=== PATIENT | female | born 2000 | race Two or more races ===

== ENCOUNTER 2022-05-29 19:09 | Emergency (ER) | payer OTHER ==
[2022-05-29 19:45] VITALS: BP 128/85; PULSE 75; RESP 18; TEMP 98.7; BMI 23.1
[2022-05-29] MEDS ORDERED: SODIUM CHLORIDE 0.9% 500 ML INFUS.BAG IV ONE (21:44)
[2022-05-29] MEDS ORDERED: METOCLOPRAMIDE HCL INJECTION 10 MG/2 ML VIAL IVPUSH ONE (21:44)
[2022-05-29] MEDS ORDERED: FAMOTIDINE 20 MG/50 ML IVPB 20 MG/50 ML MG IVPB ONE ×3 (21:44→22:37)
[2022-05-29 21:58] LABS: BASO % 1.3 % (0-2.0); EOS % 0.4 % (0-4.5); HEMATOCRIT 42.5 % (32.4-45.2); HEMOGLOBIN 13.7 GM/dL (10.7-15.3); LYMPH % 25.5 % (8-40); MCH 25.6 pg (25.7-33.7); MCHC 32.3 g/dl (32.0-36.0); MEAN CELL VOLUME 79.3 fl (80-96); MEAN PLT VOLUME 11.3 fl (7.5-11.1); MONO % 10.3 % (3.8-10.2); NEUT % 62.5 % (42.8-82.8); PLATELET COUNT 244 10^3/uL (134-434); RBC 5.35 M/mm3 (3.60-5.2); RDW 15.6 % (11.6-15.6); WHITE BLOOD COUNT 9.8 K/mm3 (4.0-10.0)
[2022-05-29 22:11] LABS: ALBUMIN 4.4 g/dl (3.4-5.0); CALCIUM 9.7 mg/dL (8.5-10.1)
[2022-05-29 22:12] LABS: BLOOD UREA NITROGEN 11.5 mg/dL (7-18)
[2022-05-29 22:14] LABS: CREATININE 0.7 mg/dL (0.55-1.3)
[2022-05-29 22:16] LABS: TOT PROT 8.4 g/dl (6.4-8.2)
[2022-05-29] MEDS ORDERED: METOCLOPRAMIDE HCL INJECTION 10 MG/2 ML VIAL ONE ×2 (22:36→22:37)
[2022-05-29 23:05] LABS: EPI CELLS >36 /uL (0-25.1); HYALINE CASTS 4 /uL (0-3.1); PH,URINE 5.5 (5.0-8.0); URINE APPEARANCE CLOUDY; URINE BACTERIA 571 /uL (0-1359); URINE BILIRUBIN NEGATIVE (NEGATIVE); URINE COLOR DK YELLOW; URINE GLUCOSE (UA) NEGATIVE (NEGATIVE); URINE KETONE 3+ (NEGATIVE); URINE LEUK ESTERASE 1+ (NEGATIVE); URINE NITRITE NEGATIVE (NEGATIVE); URINE PROTEIN 2+ (NEGATIVE); URINE RBC 3527 /uL (0-23.9); URINE WBC 63 /uL (0-25.8)
[2022-05-30] MEDS ORDERED: CEPHALEXIN MONOHYDRATE 500 MG CAPSULE (UD) PO ONE (00:52)
[2022-05-30] MEDS ORDERED: CEPHALEXIN MONOHYDRATE 500 MG CAPSULE (UD) ONE (01:36)
== END 2022-05-30 01:59 | disposition home or self-care (01) ==
LOC: JER 19:09
PROC: 3E033GC Introduction of Other Therapeutic Substance into Peripheral Vein, Percutaneous Approach (ICD-10-PCS; principal; 2022-05-29)
PROC: 3E033GC Introduction of Other Therapeutic Substance into Peripheral Vein, Percutaneous Approach (ICD-10-PCS; 2022-05-29)
DX: R11.2 Nausea with vomiting, unspecified (principal)
CPT/HCPCS: 36415; 80053; 81003; 84703; 85025; 99284-25

== ENCOUNTER 2022-06-04 13:47 | Emergency (ER) | payer OTHER, BC ==
[2022-06-04 13:55] VITALS: BP 123/87; PULSE 85; RESP 18; TEMP 98; BMI 21.4
[2022-06-04] MEDS ORDERED: SODIUM CHLORIDE 0.9% 500 ML INFUS.BAG IV ONE (14:40)
[2022-06-04] MEDS ORDERED: DEXAMETHASONE SOD PHOSPHATE 10 MG/1 ML VIAL IVPUSH ONE (14:41)
[2022-06-04] MEDS ORDERED: METOCLOPRAMIDE HCL INJECTION 10 MG/2 ML VIAL IVPUSH ONE (14:42)
[2022-06-04] MEDS ORDERED: DEXAMETHASONE SOD PHOSPHATE 10 MG/1 ML VIAL ONE (15:30)
[2022-06-04] MEDS ORDERED: METOCLOPRAMIDE HCL INJECTION 10 MG/2 ML VIAL ONE (15:30)
[2022-06-04 16:28] LABS: BASO % 0.8 % (0-2.0); EOS % 0.6 % (0-4.5); HEMATOCRIT 40.9 % (32.4-45.2); HEMOGLOBIN 12.9 GM/dL (10.7-15.3); LYMPH % 21.7 % (8-40); MCH 25.4 pg (25.7-33.7); MCHC 31.7 g/dl (32.0-36.0); MEAN CELL VOLUME 80.3 fl (80-96); MEAN PLT VOLUME 11.5 fl (7.5-11.1); MONO % 10.6 % (3.8-10.2); NEUT % 66.3 % (42.8-82.8); PLATELET COUNT 256 10^3/uL (134-434); RBC 5.09 M/mm3 (3.60-5.2); RDW 14.7 % (11.6-15.6); WHITE BLOOD COUNT 8.8 K/mm3 (4.0-10.0)
[2022-06-04 16:32] LABS: CALCIUM 9.4 mg/dL (8.5-10.1)
[2022-06-04 16:33] LABS: MAGNESIUM 2.1 mg/dL (1.8-2.4)
[2022-06-04 16:37] LABS: CREATININE 0.8 mg/dL (0.55-1.3)
[2022-06-04] MEDS ORDERED: CEPHALEXIN MONOHYDRATE 500 MG CAPSULE (UD) PO ONE (17:12)
[2022-06-04] MEDS ORDERED: CEPHALEXIN MONOHYDRATE 500 MG CAPSULE (UD) ONE ×2 (17:20→17:31)
== END 2022-06-04 17:50 | disposition home or self-care (01) ==
LOC: JER 13:47
PROC: 3E0333Z Introduction of Anti-inflammatory into Peripheral Vein, Percutaneous Approach (ICD-10-PCS; principal; 2022-06-04)
PROC: 3E033GC Introduction of Other Therapeutic Substance into Peripheral Vein, Percutaneous Approach (ICD-10-PCS; 2022-06-04)
PROC: 3E033GC Introduction of Other Therapeutic Substance into Peripheral Vein, Percutaneous Approach (ICD-10-PCS; 2022-06-04)
DX: U07.1 COVID-19 (principal)
CPT/HCPCS: 0241U-QW; 36415; 80048; 83735; 84443; 85025; 99284-25; J1100